=== PATIENT | female | born 1945 | race Caucasian/White ===

== ENCOUNTER → 2024-01-19 | Day surgery (SDC) | payer MEDICARE ==
[~2024-01-19] MED LIST: Aspirin PO; EVISTA60 MG PO; FAMOTIDINE 20 MG/2 ML VIAL IV ONE; FENTANYL CITRATE/PF 100MCG/2 ML INJ ONE; LEVOTHYROXINE150 MCG PO; LIDOCAINE HCL 2% LOCAL INJ 5 ML SDV VIAL INJ ONE; MECLIZINE HCL12.5 MG PO; METOCLOPRAMIDE HCL 10 MG/2ML VIAL ONE; MONTELUKAST SOD10 MG PO; MOXIFLOXACIN OU; NORCO 7.5-3251 EACH PO; ONDANSETRON HCL INJ 2MG/ML 2ML 2 MG/ML VIAL ONE; PROPOFOL IV EMULSION 10 MG/ML 20 ML VIAL ONE; PROZAC40 MG PO; TYLENOL PM EXS1 EACH; VITAMIN D31 ML; WELLBUTRIN SR150 MG PO; ZOFRAN ODT4 MG SL
[2024-01-19] MEDS: LACTATED RINGER'S 1,000 ML ONE (09:22)
[2024-01-19 10:43] VITALS: TEMP 97.8
[2024-01-19 11:35] VITALS: BP 122/70; PULSE 77; RESP 16; O2SAT 97
== END | disposition home or self-care (01) ==
LOC: OR 08:11
PROVIDERS: ATTEND Otolaryngology Otolaryngology/Facial Plastic Surgery
DX: H90.41 Sensorineural hearing loss, unilateral, right ear, with unrestricted hearing on the contralateral side (principal); H93.8X1 Other specified disorders of right ear; D32.0 Benign neoplasm of cerebral meninges; E03.9 Hypothyroidism, unspecified; K57.90 Diverticulosis of intestine, part unspecified, without perforation or abscess without bleeding; M06.9 Rheumatoid arthritis, unspecified; F32.A Depression, unspecified; Z88.1 Allergy status to other antibiotic agents; Z79.899 Other long term (current) drug therapy; Z87.891 Personal history of nicotine dependence
CPT/HCPCS: 69436; 71046; 93005; J2003; J2405; J2704; J2765; J3010; J7121